=== PATIENT | female | born 1995 | race Caucasian/White ===

== ENCOUNTER → 2024-01-19 | Outpatient (CLI) | payer SELFPAY ==
[2024-01-19 08:04] LABS: Bedside Glucose 93 mg/dL (74-106)
[2024-01-19 08:38] LABS: Hematocrit 43.1 % (37-47); Mean Corp Hgb Conc 32.5 g/dL (32-36); Mean Corpuscular Hgb 27.7 pg (27.0-32.0); Mean Corpuscular Volume 85.2 fL (81-99); Mean Platelet Vol. 10.1 fl (6.2-12.0); Platelet Count 322 K/mm3 (150-450); RBC Distribution Width CV 12.7 % (11.6-14.6); RBC Distribution Width SD 39.4 fl (35.1-43.9); Red Blood Count 5.06 M/mm3 (4.2-5.4); White Blood Count 6.3 K/mm3 (4.4-11.0)
[2024-01-19 09:05] LABS: Glucose 75GTT - Fasting 84 mg/dL (70-99)
[2024-01-19 09:09] LABS: T3 Total - Triiodothyronine 1.46 ng/mL (0.6-1.81); Vitamin D,25 Hydroxy 34.8 ng/mL
[2024-01-19 09:35] LABS: Glucose 75GTT - 30 minutes 182 mg/dL (100-160)
[2024-01-19 09:46] LABS: Prolactin 79.3 ng/mL; Thyroid Stim Hormone (TSH) 1.58 uIU/mL (0.358-3.74)
[2024-01-19 09:50] LABS: Glucose 107 mg/dL (74-106)
[2024-01-19 09:59] LABS: Glucose 75GTT - 60 minutes 114 mg/dL (100-160)
[2024-01-19 10:03] LABS: Prolactin 37.7 ng/mL; Thyroid Stim Hormone (TSH) 1.35 uIU/mL (0.358-3.74)
[2024-01-19 10:37] LABS: Glucose 75GTT - 120 minutes 97 mg/dL (70-140)
[2024-01-19 14:49] LABS: ALB/GLOB Ratio 1.1 RATIO (0.9-2.4); AST(SGOT) 12 U/L (15-37); Alanine Aminotransfer ALT/SGPT 16 U/L (13-56); Albumin, Serum 3.8 g/dL (3.2-5.0); Alkaline Phosphatase 51 U/L (45-117); Anion Gap 5 (5-15); BUN 12 mg/dL (7-18); BUN/Creat Ratio 15.5 RATIO (10-20); Chloride 105 mmol/L (98-107); Cholesterol 184 mg/dL (200); Creatinine, Serum 0.78 mg/dL (0.55-1.02); EST Glomerular Filtration Rate 94 mL/min (>60); Est Glom Filt Rate - Afr Amer 114 mL/min (>60); Estradiol 31.7 pg/mL; Follicle Stimulating Hormone 6.7 mIU/mL; Free T3 3.1 pg/mL (2.18-3.98); Globulin 3.5 g/dL (2.2-4.2); Glucose 79 mg/dL (74-106); High Density Lipoprotein 63 mg/dL; Luteinizing Hormone 4.2 mIU/mL; Potassium 3.7 mmol/L (3.5-5.1); Protein, Total 7.3 g/dL (6.4-8.2); Sodium Level 136 mmol/L (136-145); T4 Free Direct 1.03 ng/dL (0.76-1.46); Thyroid Stim Hormone (TSH) 1.71 uIU/mL (0.358-3.74); Triglycerides 52 mg/dL; Very Low Density Lipoprotein 10 mg/dL (5-40)
[2024-01-20 03:07] LABS: PROGESTERONE 0.1 ng/mL (.)
== END | disposition home or self-care (01) ==
LOC: LAB 06:57
PROVIDERS: PCP Nurse Practitioner Family; Referring Provider Obstetrics & Gynecology; Visit Provider Obstetrics & Gynecology
DX: E28.9 Ovarian dysfunction, unspecified (principal); E07.9 Disorder of thyroid, unspecified; Z13.228 Encounter for screening for other metabolic disorders
CPT/HCPCS: 36415; 80053; 80061; 82157; 82306; 82533; 82627; 82670; 82947; 82951; 82952; 82962; 83001; 83002; 83516; 84144; 84146; 84270; 84402; 84403; 84432; 84439; 84443; 84480; 84481; 85027; 86376; 86800; 82626

== ENCOUNTER → 2024-02-16 | Outpatient (CLI) | payer SELFPAY ==
--- NOTE | 2024-02-16 06:37 | MRI_ITS ---
STUDY: MRI BRAIN WITH AND WITHOUT CONTRAST (ATTENTION PITUITARY GLAND) REASON FOR EXAM: Female, 28 years old. HYPERPROLACTEMIA TECHNIQUE: Standardized multiplanar fat and water weighted pulse sequences were obtained. 14 CC IV CLARISCAN was administered for the contrast portion of the examination. COMPARISON: None. FINDINGS: Pituitary is normal size measuring approximately 4.6 x 6.4 x 13.3 mm . There is mildly heterogeneous enhancement following contrast administration and questionable nodule measuring approximately 4.1 x 3.2 x 4.2 mm within the left posterior lateral aspect of the gland which may be consistent with a microadenoma.. There is also nonspecific focal nodular thickening of the infundibulum which demonstrates homogeneous enhancement measuring approximately 2.5 x 3.1 mm. Normal suprasellar cistern. Normal optic chiasm and hypothalamus. Normal size of the ventricles and extra-axial spaces for the patient''s age. Normal white matter tracts of the supratentorial brain. Normal bilateral basal ganglia. Normal thalami. Normal flow voids within the major intracranial circulation suggesting patency by spin echo criteria. Normal venous enhancement. There is no enhancing intra-axial or extra-axial abnormality. There is no extra-axial fluid accumulation. Normal tectal plate and pineal gland. Normal midbrain, carmen and medulla. Normal cerebellum. Normal basal cisterns. Normal bilateral temporal bones. Normal bilateral internal auditory canals. No demonstrated orbital abnormality, within the constraints of a routine brain study. Large mucous retention cyst or polyp in the right maxillary sinus. Normal calvarium and skull base. Normal visualized upper cervical spine. Normal visualized soft tissue structures. MRI/Brain W/WO Contrast IMPRESSION: Findings which may be consistent with microadenoma of the pituitary.. Nonspecific focal nodular thickening of the pituitary stalk of indeterminate etiology or clinical significance.. Clinical correlation recommended. Electronically Signed: Pito Norton MD at 17:19 EDT ,
== END | disposition home or self-care (01) ==
PROVIDERS: PCP Nurse Practitioner Family; Referring Provider Obstetrics & Gynecology; Visit Provider Obstetrics & Gynecology
DX: E22.1 Hyperprolactinemia (principal)
CPT/HCPCS: 70553; A9575